=== PATIENT | male | born 1950 | race Caucasian/White ===

== ENCOUNTER 2022-11-23 14:56 | Emergency (ER) | payer OTHER ==
[~2022-11-23] VITALS: Ht 182.9 cm; Wt 105.7 kg
--- NOTE | 2022-11-23 15:10 | NUR ---
[facility]
--- NOTE | 2022-11-23 15:15 | NUR ---
ESTABLISHED IV ACCESS 18G LEFT WRIST. BLOOD DRAWN AND SENT TO LAB
--- NOTE | 2022-11-23 15:17 | NUR ---
COVID SWAB TAKEN
[2022-11-23 15:26] LABS: BASOPHILS % (AUTO) 0.1 % (0.0-2.0); EOSINOPHILS % (AUTO) 0.2 % (0.0-6.0); HEMATOCRIT 35 % (39-51); LYMPHOCYTES # (AUTO) 0.2 K/uL (0.8-4.8); LYMPHOCYTES % (AUTO) 1.2 % (20.0-44.0); MEAN CORPUSCULAR HGB CONC 32 g/dl (31.0-36.0); MEAN CORPUSCULAR VOLUME 102 fL (80-96); MONOCYTES # (AUTO) 0.5 K/uL (0.1-1.30); MONOCYTES % (AUTO) 3.1 % (2.0-12.0); NEUTROPHILS # (AUTO) 14.1 K/uL (1.8-8.9); NEUTROPHILS % (AUTO) 95.4 % (43.0-81.0); PLATELET COUNT (AUTO) 245 K/uL (150-450); RED BLOOD CELL COUNT(AUTO) 3.44 MIL/uL (4.5-6.0); WHITE BLOOD COUNT (AUTO) 14.8 K/uL (4.3-11.0)
[2022-11-23] MEDS ORDERED: SIMV10TA2 PO (15:43)
[2022-11-23] MEDS ORDERED: NITR0.4T48 SL (15:43)
[2022-11-23] MEDS ORDERED: CALC0.253 PO (15:43)
[2022-11-23] MEDS ORDERED: ALBU18HF2 IH (15:43)
[2022-11-23] MEDS ORDERED: APIX2.5T PO (15:43)
[2022-11-23] MEDS ORDERED: ASPI-1169 PO (15:43)
[2022-11-23] MEDS ORDERED: SEVE800T8 PO (15:43)
[2022-11-23] MEDS ORDERED: FERR325T23 PO (15:43)
[2022-11-23] MEDS ORDERED: CARV6.252 PO (15:43)
[2022-11-23] MEDS ORDERED: CICL6.1H2 IH (15:43)
[2022-11-23] MEDS ORDERED: TRAZ-182 PO (15:43)
[2022-11-23] MEDS ORDERED: NPH,100I SQ (15:43)
[2022-11-23] MEDS ORDERED: VITA1TAB56 PO (15:43)
[2022-11-23] MEDS ORDERED: INSU100V3 SQ (15:43)
[2022-11-23] MEDS ORDERED: ALLO100T PO (15:43)
[2022-11-23 15:57] LABS: ALANINE AMINOTRANSFERASE 22 U/L (12-78); ALBUMIN 2.1 g/dL (3.4-5.0); ALKALINE PHOSPHATASE 192 U/L (46-116); ASPARTATE AMINOTRANSFERASE 25 U/L (15-37); BILIRUBIN,TOTAL 3.6 mg/dL (0.2-1.0); CALCIUM, SERUM 10.1 mg/dL (8.5-10.1); CARBON DIOXIDE 25 mmol/L (21-32); CHLORIDE 93 mmol/L (98-107); GLUCOSE 181 mg/dL (74-106); POTASSIUM 5.1 mmol/L (3.5-5.1); SODIUM SERUM 130 mmol/L (136-145); TOTAL PROTEIN, SERUM 6.7 g/dL (6.4-8.2); UREA NITROGEN, BLOOD 69 mg/dL (7-18)
--- NOTE | 2022-11-23 16:17 | NUR ---
LACTIC ACID- 2.0 MD MADE AWARE
--- NOTE | 2022-11-23 16:23 | NUR ---
CALLED [facility]. WAITING FOR CALLBACK
--- NOTE | 2022-11-23 16:40 | NUR ---
PATIENT TAKEN TO CT VIA [facility]
[2022-11-23] MEDS ORDERED: PIPERACILLIN /TAZOBACTAM 3.375 G VIAL IV ONE (17:00)
[2022-11-23] MEDS ORDERED: PIPERACILLIN /TAZOBACTAM 3.375 G in IV D5W 50 ML IV ONE (17:00)
[2022-11-23] MEDS ORDERED: IV NS 0.9% 1,000 ML BAG IV ONE ×2 (17:00→17:30)
[2022-11-23] MEDS ORDERED: VANCOMYCIN 1 GM in IV D5W 250 ML IV ONE (17:30)
--- NOTE | 2022-11-23 17:37 | NUR ---
DR. BARRAGAN PROVIDING MORE INFO TO OVIDIO OVERTON ON PHONE
[2022-11-23] MEDS ORDERED: ACETAMINOPHEN 325 MG TABLET ONE (17:47)
[2022-11-23] MEDS ORDERED: MIDODRINE HCL (5MG) 5 MG TABLET ONE (17:47)
[2022-11-23] MEDS ORDERED: ACETAMINOPHEN 325 MG TABLET PO ONE (18:00)
[2022-11-23] MEDS ORDERED: MIDODRINE HCL (5MG) 5 MG TABLET PO SCH (18:00)
[2022-11-23] MEDS ORDERED: POLY17PO4 PO (18:09)
[2022-11-23] MEDS ORDERED: HYDR-4209 PO (18:09)
[2022-11-23] MEDS ORDERED: AZEL137S7 (18:09)
[2022-11-23] MEDS ORDERED: CHOL100043 PO (18:09)
[2022-11-23] MEDS ORDERED: MIDO5TAB4 PO (18:09)
[2022-11-23] MEDS ORDERED: NPH,100V SQ (18:09)
[2022-11-23] MEDS ORDERED: WHEA1POW6 PO (18:09)
--- NOTE | 2022-11-23 18:39 | NUR ---
PT ACCEPTED AT [facility]. [phone] SANTOS.
--- NOTE | 2022-11-23 19:36 | NUR ---
report given to [facility] nurse matamoros rn for piter
--- NOTE | 2022-11-23 20:32 | NUR ---
REPORT GIVEN TO [facility] EMT REY OF [id number].
--- NOTE | 2022-11-23 20:59 | NUR ---
TRANSFERRED TO [facility] VIA [facility]. VITALS WITHIN NORMAL LIMITS PRIOR TO TRANSPORT.
[2022-11-23 21:00] VITALS: BP 100/53
== END 2022-11-23 21:01 | disposition short-term general hospital (02) ==
LOC: ER 14:58
DX: I95.9 Hypotension, unspecified (principal); E11.22 Type 2 diabetes mellitus with diabetic chronic kidney disease; N18.6 End stage renal disease; Z99.2 Dependence on renal dialysis; Z79.4 Long term (current) use of insulin; R51.9 Headache, unspecified; D32.0 Benign neoplasm of cerebral meninges; I50.9 Heart failure, unspecified; Z95.810 Presence of automatic (implantable) cardiac defibrillator; I48.91 Unspecified atrial fibrillation; Z79.01 Long term (current) use of anticoagulants; Z20.822 Contact with and (suspected) exposure to COVID-19
CPT/HCPCS: 99291; 96365; 70450; 96375; 87426; 93005; 87040 ×4; 71045; 85025; 80048; 83605 ×2; 80076; 36415; 84484; 85730; J3370; J2543; J7050 ×2; C9803; J7060